=== PATIENT | male | born 1975 | race Caucasian/White ===

== ENCOUNTER 2021-11-20 20:32 | Emergency (ER) | payer OTHER ==
[~2021-11-20] VITALS: Ht 175.3 cm; Wt 104.3 kg
[2021-11-20 21:06] VITALS: BP 148/86
--- NOTE | 2021-11-20 23:08 | NUR ---
PT CALLED IN LOBBY AND OUTSIDE BY DR. KHANNA WITH NO ANSWER. LWBS
--- NOTE | 2021-11-20 23:31 | NUR ---
RECEIVED CALL FROM ADMITTING THAT PATIENT RETURNED TO LOBBY TO BE SEEN
[2021-11-21] MEDS ORDERED: HYDROcodone/APAP 5/325 MG 1 TAB TAB PO ONE (00:35)
--- NOTE | 2021-11-21 00:51 | NUR ---
PT RETURN FROM RADIOLOGY
[2021-11-21] MEDS ORDERED: NAPR-1847 PO (01:02)
[2021-11-21] MEDS ORDERED: ACET-8386 PO (01:02)
[2021-11-21] MEDS ORDERED: DOXY-487 PO (01:02)
--- NOTE | 2021-11-21 01:38 | NUR ---
called for discharge, no answer
== END 2021-11-21 01:38 | disposition home or self-care (01) ==
LOC: MED 20:32
DX: L03.113 Cellulitis of right upper limb (principal); Z72.89 Other problems related to lifestyle
CPT/HCPCS: 73130; 99283